=== PATIENT | female | born 1995 ===

== ENCOUNTER → 2019-06-27 | Day surgery (SDC) | payer OTHER ==
[~2019-06-27] MED LIST: ACETAMINOPHEN 325 MG TAB PO PRN; AMOXICILLIN250 MG PO; KETOROLAC TROMETHAMINE 30 MG/ML VIAL ONE; TYLENOL WITH C1 EACH PO
[2019-06-27 14:05] VITALS: BP 99/55
== END | disposition home or self-care (01) ==
LOC: OR 15:29
PROVIDERS: ATTEND Surgery
DX: L05.91 Pilonidal cyst without abscess (principal)
CPT/HCPCS: 81025; 87071; 87075; 87205; J1885